=== PATIENT | female | born 1950 ===

== ENCOUNTER 2019-09-22 06:16 | Day surgery (SDC) | payer OTHER ==
[~2019-09-22 06:16] MED LIST: CLONAZEPAM0.5 MG PO; LAMICTAL200 M1 PO; PAXIL30 MG PO; SYNTHROID88 MCG PO
== END 2019-09-22 19:30 | disposition home or self-care (01) ==
LOC: CIR.AMB 06:16 → ADM 09:15 → CIR.AMB 14:15
DX: M19.042 Primary osteoarthritis, left hand (principal); R22.32 Localized swelling, mass and lump, left upper limb